=== PATIENT | male | born 1975 | race Caucasian/White ===

== ENCOUNTER 2020-01-06 08:09 | Observation (INO) ==
[2020-01-06 08:43] LABS: Basophils # 0.1 K/mcL (0.0-0.2); Basophils % 1.4 %; Eosinophils # 0.5 K/mcL (0.0-0.6); Eosinophils % 5.1 %; Hematocrit 50.2 % (37.5-50.1); Hemoglobin 16.4 g/dL (12.9-16.9); Immature Granulocytes % 0.4 % (0-4); Lymphocytes # 3.8 K/mcL (0.6-4.6); Lymphocytes % 39.8 %; Mean Corpuscular HGB Conc 32.7 g/dL (31.6-35.5); Mean Corpuscular Hemoglobin 27.1 pg (28.0-33.3); Mean Platelet Volume 10.2 fL (9.4-12.4); Monocytes # 0.6 K/mcL (0.0-1.3); Monocytes % 6.7 %; Neutrophils # 4.5 K/mcL (1.6-8.9); Platelet Count 371 K/mcL (140-400); Red Blood Count 6.05 M/mcL (4.19-5.50); Red Cell Distribution Width 12.3 % (11.5-14.5); Segmented Neutrophils % 46.6 %; White Blood Count 9.6 K/mcL (4.3-11.1)
[2020-01-06 08:56] LABS: INR 1.1; Prothrombin Time 12.2 Seconds (9.4-12.1)
[2020-01-06 08:58] LABS: BUN/Creatinine Ratio 23 (6-26); Blood Urea Nitrogen 16 mg/dL (6-20); Carbon Dioxide 27 mEq/L (23-29); Chloride 101 mEq/L (98-107); Glucose 490 mg/dL (70-105); Potassium 4.3 mEq/L (3.5-5.1); Sodium 134 mEq/L (136-145); eGFR For African Americans > 60 (> 60); eGFR For Non-African Americans > 60 (> 60)
[2020-01-06 08:59] LABS: Activated Partial Thrombo Time 28.6 Seconds (26.0-36.0); Calcium 9.3 mg/dL (8.6-10.3); Osmolality,Calculated 301 (280-300)
[2020-01-06 09:00] LABS: Troponin I < 0.03 ng/mL (< 0.04)
[2020-01-06] MEDS ORDERED: Acetaminophen 325 MG TABLET PO PRN (10:27)
[2020-01-06] MEDS ORDERED: *HR* Promethazine 25 MG/ML VIAL IVP PRN (10:27)
[2020-01-06] MEDS ORDERED: *HR* Dextrose 50 % in Water (Vial) 50 ML VIAL IVP PRN (10:29)
[2020-01-06] MEDS ORDERED: Ringers Solution, Lactated 1,000 ML IVC ONE (10:29)
[2020-01-06] MEDS ORDERED: Dextrose Gel 15 GM/37.5 ML TUBE PO PRN ×2 (10:29)
[2020-01-06] MEDS ORDERED: D5% in Water 1,000 ML IVC PRN (10:29)
[2020-01-06] MEDS ORDERED: Perflutren Lipid Microsphere 1.3 ML in 0.9 % Sodium Chloride 8.7 ML IVP PRN (10:35)
[2020-01-06] MEDS: *HR* Enoxaparin 100 MG/ML SYRINGE SQ SCH ×2 (14:09→20:06)
[2020-01-06] MEDS: *HR* Metformin 500 MG TABLET PO SCH ×2 (14:10→14:31)
[2020-01-06] MEDS: Nicotine 2 MG GUM BC SCH ×6 (14:10→21:20)
[2020-01-06] MEDS: Insulin LISPRO 300 UNITS/3 ML VIAL SQ SCH ×2 (14:32→16:59)
[2020-01-06] MEDS ORDERED: Insulin LISPRO 300 UNITS/3 ML VIAL SQ SCH (21:00)
[2020-01-06] MEDS ORDERED: *HR* Warfarin 5 MG TABLET PO ONE (21:34)
[2020-01-07 02:00] LABS: INR 1.2; Prothrombin Time 13.8 Seconds (9.4-12.1)
[2020-01-07 02:14] LABS: BUN/Creatinine Ratio 27 (6-26); Blood Urea Nitrogen 16 mg/dL (6-20); Calcium 8.5 mg/dL (8.6-10.3); Carbon Dioxide 26 mEq/L (23-29); Chloride 105 mEq/L (98-107); Glucose 273 mg/dL (70-105); Osmolality,Calculated 295 (280-300); Sodium 137 mEq/L (136-145); eGFR For African Americans > 60 (> 60); eGFR For Non-African Americans > 60 (> 60)
[2020-01-07] MEDS: Nicotine 2 MG GUM BC SCH (07:12)
[2020-01-07 07:30] VITALS: BP 106/69
[2020-01-07] MEDS ORDERED: Warfarin perPT PO PRN (18:00)
== END 2020-01-07 09:55 | disposition left against medical advice (07) ==
LOC: EMEROOARM 08:09 → 2ANU 08:09 → SUATTDRO 12:56 → 2ANU 13:39
PROVIDERS: ADMIT Internal Medicine; ATTEND Internal Medicine